=== PATIENT | male | born 1975 | race Caucasian/White ===

== ENCOUNTER 2021-01-29 15:42 | Emergency (ER) | payer BC ==
[~2021-01-29] VITALS: Ht 182.9 cm; Wt 90.0 kg
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
[2021-01-29 16:26] VITALS: BP 130/74
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
== END 2021-01-29 16:35 | disposition home or self-care (01) ==
LOC: ER 15:42
DX: S63.502A Unspecified sprain of left wrist, initial encounter (principal); W11.XXXA Fall on and from ladder, initial encounter; Y93.89 Activity, other specified; Y92.89 Other specified places as the place of occurrence of the external cause; Y99.8 Other external cause status
CPT/HCPCS: 29125; 73110; 99283